=== PATIENT | male | born 1955 | race Caucasian/White ===

== ENCOUNTER 2019-03-13 10:47 | Emergency (ER) | payer MEDICARE ==
[~2019-03-13] VITALS: Ht 175.3 cm; Wt 118.0 kg
[~2019-03-13 10:47] MED LIST: ASPI325T80 PO; GLIP10TA13 PO; INDO25CA22 PO; LEVO25TA4 PO; LISI-167 PO; METF10002 PO; SIMV40TA3 PO; TAMS0.4C2 PO
[2019-03-13 10:55] VITALS: BP 129/94
[2019-03-13] MEDS ORDERED: SILVER NITRATE STICK TP ONE ×2 (11:53→12:00)
== END 2019-03-13 12:59 | disposition home or self-care (01) ==
LOC: ED 12:30
DX: R04.0 Epistaxis (principal); E11.9 Type 2 diabetes mellitus without complications; E78.5 Hyperlipidemia, unspecified; M10.9 Gout, unspecified; Z86.39 Personal history of other endocrine, nutritional and metabolic disease
CPT/HCPCS: 30901; 99284